=== PATIENT | female | born 1995 | race Caucasian/White ===

== ENCOUNTER → 2022-01-18 | Outpatient (CLI) | payer BC ==
[~2022-01-18] MED LIST: KEFLEX500 MG PO; MOTRIN800 MG PO
[2022-01-18 11:21] LABS: HEMATOCRIT 42.5 % (37.0-47.0); MEAN CELL VOLUME 86.6 fl (81.0-99.0); MEAN CORPUSCULAR HGB 28.1 pg (27.0-31.0); MEAN CORPUSCULAR HGB CONC 32.5 g/dl (33.0-37.0); MEAN PLATELET VOLUME 11.3 fl (9.6-12.3); RED BLOOD COUNT 4.91 10*6/uL (4.10-5.10); RED CELL DISTRI WIDTH 13.5 % (0-14.5); WHITE BLOOD COUNT 5.5 10*3/uL (4.8-10.8)
[2022-01-18 11:36] LABS: ALKALINE PHOSPHATASE 52 U/L (45-117); BUN 7 mg/dl (7-24); CHLORIDE 110 mmol/L (98-107); CHOLESTEROL 159 mg/dL (<200); CREATININE 0.77 mg/dL (0.55-1.02); LDL CHOLESTEROL 85 mg/dL (9-159); POTASSIUM 4.5 mmol/L (3.5-5.1); SGOT/AST 15 IU/L (3-35); SGPT/ALT 17 U/L (12-78); SODIUM 140 mmol/L (136-145); TOTAL PROTEIN 7.7 gm/dL (6.4-8.2); TRIGLYCERIDES 112 mg/dl (<150)
[2022-01-18 12:02] LABS: VITAMIN D, 25-HYDROXY 23.4 ng/mL (30-100)
== END | disposition home or self-care (01) ==
LOC: LAB 11:07
PROVIDERS: ATTEND Family Medicine
DX: Z00.00 Encounter for general adult medical examination without abnormal findings (principal); E55.9 Vitamin D deficiency, unspecified; R51.9 Headache, unspecified